=== PATIENT | female | born 1975 ===

== ENCOUNTER 2018-02-08 17:09 | Emergency (ER) | payer OTHER ==
[2018-02-08 17:15] VITALS: BP 110/63; PULSE 65; RESP 20; TEMP 98.9; O2SAT 99
--- NOTE | 2018-02-08 18:21 | C.PDOC ---
History Of Present Illness 42 y/o female with throbbing dental pain x 3 days in left upper mouth in tooth that broke several months ago and not attended to. no fevers. no facial swelling. Time Seen by Provider: 02/08/18 17:28 Chief Complaint (Nursing): Dental Pain History/Exam Limitations: no limitations Onset/Duration Of Symptoms: Days (3) Current Symptoms Are (Timing): Worse Severity: Moderate Quality: Positive for: "Pain" Past Medical History Reviewed: Historical Data, Nursing Documentation, Vital Signs Vital Signs: Last Vital Signs Temp 98.9 F 02/08/18 17:13 Pulse 65 02/08/18 17:13 Resp 20 02/08/18 17:13 BP 110/63 02/08/18 17:13 Pulse Ox 99 02/08/18 22:39 - Medical History PMH: No Chronic Diseases Family History: States: Unknown Family Hx - Social History Hx Alcohol Use: No Hx Substance Use: No - Immunization History Hx Tetanus Toxoid Vaccination: No Hx Influenza Vaccination: Yes Hx Pneumococcal Vaccination: No Review Of Systems Constitutional: Positive for: Fever (subjective). Negative for: Chills ENT: Positive for: Mouth Pain Skin: Negative for: Rash, Bruising Neurological: Negative for: Weakness, Numbness Physical Exam - Physical Exam Appears: Non-toxic, No Acute Distress Skin: Warm, Dry Head: Atraumatic, Normacephalic, No Tenderness, Swelling (to face) Eye(s): bilateral: Normal Inspection Oral Mucosa: Moist Tongue: Normal Appearing Lips: Normal Appearing Teeth: Caries (left upper molar), Edentulous (partly), Tender To Palpation ( left upper molar), Other (poor dentition. ) Gingiva: Normal Appearing, No Swelling Throat: No Erythema Neck: Supple ED Course And Treatment O2 Sat by Pulse Oximetry: 99 Medical Decision Making Medical Decision Making: roken tooth left upper- tender to palp. no gum swelling. tx for pain. refer to dental. pt reports last menses 4 yrs ago. Disposition Counseled Patient/Family Regarding: Diagnosis, Need For Followup, Rx Given - Disposition Disposition: HOME/ ROUTINE Disposition Time: 18:23 Condition: GOOD Additional Instructions: Follow up with Dentist as soon as possible. Take Tylenol or Motrin for pain Prescriptions: Acetaminophen [Tylenol 325mg tab] 650 mg PO Q4 #50 tab Ibuprofen [Motrin] 600 mg PO TID #30 tab Instructions: Tooth Decay, Adult (DC), Dental Pain (DC) Forms: Gen Discharge Inst [place], [facility] ([place]) - Clinical Impression Clinical Impression: Dental caries, Pain, dental
== END 2018-02-08 18:31 | disposition home or self-care (01) ==
LOC: C.ER 17:09
DX: K02.9 Dental caries, unspecified (principal)